=== PATIENT | female | born 1980 | race Caucasian/White ===

== ENCOUNTER 2022-02-15 18:07 | Inpatient (IN) | payer OTHER ==
[2022-02-16] MEDS ORDERED: LORazepam 1 MG TAB PO PRN (07:32)
[2022-02-16] MEDS ORDERED: MAGNESIUM HYDROXIDE 2,400 MG/10 ML CUP PO PRN (07:32)
[2022-02-16] MEDS ORDERED: ACETAMINOPHEN TAB 325 MG TAB PO PRN (07:32)
[2022-02-16] MEDS ORDERED: MAG HYDROX/AL HYDROX/SIMETH 30 ML CUP PO PRN (07:32)
[2022-02-16] MEDS ORDERED: HALOPERIDOL LACTATE 5 MG/ML 1 ML VIAL IM PRN (07:32)
[2022-02-16] MEDS ORDERED: LORazepam 2 MG/ML INJ IM PRN (07:36)
[2022-02-16] MEDS: NICOTINE 14MG/24HR PATCH TRANSDERM SCH (10:07)
[2022-02-16] MEDS ORDERED: traZODone HCL 50 MG TAB PO PRN (14:02)
--- NOTE | 2022-02-16 14:07 | P.HP ---
Psychiatric H&P - . H&P Date: 02/16/22 History & Physical: Allergies Allergy/AdvReac Type Severity Reaction Status Date / Time No Known Allergies Allergy Verified 02/16/22 07:32 Vital Signs Temp 97.5 F L 02/16/22 07:14 Pulse 77 02/16/22 07:14 Resp 18 02/16/22 07:14 BP 147/91 02/16/22 07:14 Pulse Ox 95 02/16/22 07:14 FiO2 Intake & Output 02/15/22 02/16/22 02/16/22 18:59 06:59 18:59 Weight 100.2 kg 02/16/22 14:02 IDENTIFYING DATA: Patient is a 41-year-old female, coming in as a transfer from [facility]. HPI: Patient presented to the hospital yesterday as a transfer from [facility]. According to APS report, patient overdosed on Tylenol in a suicide attempt at home. Apparently patient has a history of suicide attempts and suicidal ideations. She also has a remote history of substance abuse. Patient was admitted involuntarily and apparently is on a demand for hearing. Energy Economist attempted to see patient at the bedside today and patient was laying in the bed. She did not respond to her name initially however the second time she did. She asked to web content writer was and looked away when web content writer explained that he was a psychiatrist. She was very uncooperative hostile and irritable. She refused to answer any questions. She claims that she doesn't want to talk to web content writer today and told him to leave the room. Energy Economist asked the patient was in experiencing any suicidal or homicidal ideations. Patient states that "if you don't leave me alone I well". Uncooperative with the rest of the interview and did not answer any other questions related to her past history and states "read the chart and leave me alone". PAST PSYCHIATRIC HISTORY: She apparently has a history of suicide attempts and also substance abuse. PMH: Unable to gather ALLERGIES: as per EMR CHEMICAL DEPENDENCY HISTORY: Unable to gather FAMILY PSYCHIATRIC/SUBSTANCE USE HISTORY: Unable to gather SOCIAL HISTORY: Unable to gather MENTAL STATUS EXAM: General Appearance: Patient appears to have short hair, laying in bed and uncooperative stated age is alert, evasive and hostile. Patient appears to have poor hygiene and grooming. Behavior: Patient is seated without any agitated behavior. Uncooperative and hostile Speech: Patient's speech is fluent and nonpressured. Mood/Affect: Unable to assess Suicidality/Homicidality: Unable to assess Perceptions: Unable to assess Though content/process: [place], demanding. Hostile. Memory and concentration: Unable to assess Judgment and insight: poor STRENGTHS/WEAKNESSES: strength is that patient is resilient. Weakness is that patient has poor judgment and is impulsive INTELLECT: average IMPRESSIONS: Depressive disorder unspecified, rule out bipolar depression versus major depressive disorder PLAN: -Patient is admitted under involuntary status to [facility] for stabilization of psychiatric symptoms and safety. Patient has not signed adult voluntary form and medication consent and is placed in patient's chart. Patient apparently is on a deferral at this time and will look into when patient's demand for hearing his. -Medications : Will start patient on Zoloft 50 mg daily for mood/anxiety, trazodone 50 mg daily at bedtime when necessary for insomnia. -Ativan and Haldol PRN for agitation/aggression -Patient was informed of the risks, benefits and side effects of the medication -Internal Medicine consult to perform medical evaluation and physical. -NRT - nicotine patch -SW on board for discharge planning. Encourage patient to participate in groups to work on coping skills. Awaiting demand for hearing.
--- NOTE | 2022-02-16 15:32 | P.HPIM ---
History of Present Illness H&P Date: 02/16/22 Admitted to the hospital for suicidal patient is currently uncooperative irritated is not participating in any exam Review of systems unable to get Physical Does not appear to be in distress No labored breathing Unable to do more physical exam due to uncooperativeness Suicidal management as per psychiatry We'll check Tylenol level if possible Medications and Allergies Allergies Allergy/AdvReac Type Severity Reaction Status Date / Time No Known Allergies Allergy Verified 02/16/22 07:32 Physical Exam Vitals: Vital Signs Temp Pulse Resp BP Pulse Ox 02/16/22 07:14 97.5 F L 77 18 147/91 95 Intake and Output 02/16/22 02/16/22 02/16/22 06:59 14:59 22:59 Other: Weight 100.2 kg
[2022-02-16] MEDS: SERTRALINE 50 MG TAB PO SCH ×2 (15:36→15:39)
[2022-02-17] MEDS: SERTRALINE 50 MG TAB PO SCH (09:15)
[2022-02-17] MEDS: NICOTINE 14MG/24HR PATCH TRANSDERM SCH (09:15)
--- NOTE | 2022-02-17 12:22 | P.PN ---
Progress Note - Text Progress Note Date: 02/17/22 Interval History: Patient was seen today laying in the bed. According to nursing report patient has not been taking medications and has been mainly isolating and staying in her room. Patient was approached today by health technical writer in her room and patient appeared to be somewhat awake however lying in her bed. She continues to have an irritable tone and was hostile towards health technical writer and told them "just leave" and when health technical writer attempted to engage with patient once again patient responded "get out of my room" and states that she does not want to speak to him. She refused to answer any other questions. she is non compliant with meds. Mental Status Exam: General Appearance: Patient appears to have short hair, laying in bed and uncooperative stated age is alert, evasive and hostile. Patient appears to have poor hygiene and grooming. Behavior: Patient is seated without any agitated behavior. Uncooperative and hostile. Demanding Speech: Patient's speech is fluent and nonpressured. Mood/Affect: Unable to assess Suicidality/Homicidality: Unable to assess Perceptions: Unable to assess Though content/process: [place], demanding. Hostile. Memory and concentration: Unable to assess Judgment and insight: poor IMPRESSIONS: Depressive disorder unspecified, rule out bipolar depression versus major depressive disorder Plan: -Patient continues to meet criteria for inpatient psychiatric admission for symptom stabilization and safety. Patient has not signed adult voluntary form and medication consent and was placed in patient's chart. -Medications: Continue Zoloft 50 mg daily for mood/anxiety, trazodone 50 mg daily at bedtime when necessary for insomnia. She is not taking any medicat ions. -When necessary Ativan and Haldol for agitation/aggression. -NRT - nicotine patch -SW on board for discharge planning. Encouraged the patient to participate in milieu. Currently awaiting deferral with personal injury attorney and court date.
--- NOTE | 2022-02-18 10:40 | P.PN ---
Progress Note - Text Progress Note Date: 02/18/22 Interval History: Patient was seen today laying in the bed. Patient continues to isolate in her room. She continues to not engage in treatment and not take any medications. Patient was approached today by food writer to be interviewed however patient did not acknowledge food writer. She continues to lay on her bed with her sheets covering her and turned to the side. She did not respond to any questions by food writer today. she is non compliant with meds. Mental Status Exam: General Appearance: Patient appears to have short hair, laying in bed and uncooperative stated age is alert, uncooperative. Patient appears to have poor hygiene and grooming. Behavior: Patient is laying in bed without any agitated behavior. Uncooperative Speech: Patient's speech is fluent and nonpressured. Mood/Affect: Unable to assess Suicidality/Homicidality: Unable to assess Perceptions: Unable to assess Though content/process: unable to assess Memory and concentration: Unable to assess Judgment and insight: poor IMPRESSIONS: Depressive disorder unspecified, rule out bipolar depression versus major depressive disorder Plan: -Patient continues to meet criteria for inpatient psychiatric admission for symptom stabilization and safety. Patient has not signed adult voluntary form and medication consent and was placed in patient's chart. -Medications: Continue Zoloft 50 mg daily for mood/anxiety, trazodone 50 mg daily at bedtime when necessary for insomnia. She is not taking any medications. -When necessary Ativan and Haldol for agitation/aggression. -NRT - nicotine patch -SW on board for discharge planning. Encouraged the patient to participate in milieu. Currently awaiting deferral with energy attorney and court date.
[2022-02-18] MEDS: NICOTINE 14MG/24HR PATCH TRANSDERM SCH (10:51)
[2022-02-18] MEDS: SERTRALINE 50 MG TAB PO SCH (10:51)
[2022-02-18] MEDS: haloperidoL 5 MG TAB PO PRN (21:06)
[2022-02-19] MEDS: NICOTINE 14MG/24HR PATCH TRANSDERM SCH (09:57)
[2022-02-19] MEDS: SERTRALINE 50 MG TAB PO SCH (09:57)
--- NOTE | 2022-02-19 11:08 | P.PN ---
Subjective Progress Note Date: 02/19/22 Principal diagnosis: IMPRESSIONS: Depressive disorder unspecified, rule out bipolar depression versus major depressive disorder Rule out personality disorder unspecified Interval History: Patient was seen today laying in the bed. Patient continues to isolate in her room. She continues to not engage in treatment and not take any medications. Patient was approached today by sports book writer . Patient was initially reluctant to answer any questions Patient continues to complain that she was forced to come here She admits that she took an overdose with about 60 Tylenol tablets but that the med this treatment has ever done her any good Patient then refused to answer any questions but continues to cuss out against the staff and for being confined here . Mental Status Exam: General Appearance: Patient appears to have short hair, laying in bed and uncooperative stated age is alert, uncooperative. Patient appears to have poor hygiene and grooming. Behavior: Patient is laying in bed without any agitated behavior. Uncooperative Speech: Patient's speech is fluent and nonpressured. Mood/Affect: Unable to assess Suicidality/Homicidality: Unable to assess Perceptions: Unable to assess Though content/process: unable to assess Memory and concentration: Unable to assess Judgment and insight: poor IMPRESSIONS: Depressive disorder unspecified, rule out bipolar depression versus major depressive disorder Plan: -Patient continues to meet criteria for inpatient psychiatric admission for symptom stabilization and safety. Patient has not signed adult voluntary form and medication consent and was placed in patient's chart. -Medications: Continue Zoloft 50 mg daily for mood/anxiety, trazodone 50 mg daily at bedtime when necessary for insomnia. She is not taking any medications. -When necessary Ativan and Haldol for agitation/aggression. -NRT - nicotine patch - on board for discharge planning. Encouraged the patient to participate in milieu. Currently awaiting deferral with deputy commonwealth's attorney and court date. Saroj Umana M.D. 02/19/2022 Objective - Vital Signs Vital signs: Vital Signs Temp 97.4 F L 02/19/22 07:02 Pulse 72 02/19/22 07:02 Resp 18 02/16/22 07:14 BP 127/76 02/19/22 07:02 Pulse Ox 97 02/19/22 07:02 FiO2
[2022-02-20] MEDS: SERTRALINE 50 MG TAB PO SCH (08:58)
[2022-02-20] MEDS: NICOTINE 14MG/24HR PATCH TRANSDERM SCH (08:58)
--- NOTE | 2022-02-20 10:38 | P.PN ---
Subjective Progress Note Date: 02/20/22 Principal diagnosis: IMPRESSIONS: Depressive disorder unspecified, rule out bipolar depression versus major depressive disorder Rule out personality disorder unspecified Interval History: Patient was seen today laying in the bed. Patient continues to isolate in her room. She continues to not engage in treatment and not take any medications. When Patient was approached today by jingle writer she immediately put the bed sheets on top of her head and refused to answer any questions Patient had previously Patient continues to complain that she was forced to come here She admits that she took an overdose with about 60 Tylenol tablets but that the med this treatment has ever done her any good Patient then refused to answer any questions but continues to cuss out against the staff and for being confined here . Mental Status Exam: General Appearance: Patient appears to have short hair, laying in bed and uncooperative stated age is alert, uncooperative. Patient appears to have poor hygiene and grooming. Behavior: Patient is laying in bed without any agitated behavior. Uncooperative Speech: Patient refused to answer any questions by pulling up that she over the top of her head Mood/Affect: Unable to assess Suicidality/Homicidality: Unable to assess Perceptions: Unable to assess Though content/process: unable to assess Memory and concentration: Unable to assess Judgment and insight: poor IMPRESSIONS: Depressive disorder unspecified, rule out bipolar depression versus major depressive disorder Plan: -Patient continues to meet criteria for inpatient psychiatric admission for symptom stabilization and safety. Patient has not signed adult voluntary form and medication consent and was placed in patient's chart. -Medications: Continue Zoloft 50 mg daily for mood/anxiety, trazodone 50 mg daily at bedtime when necessary for insomnia. She is not taking any me dications. -When necessary Ativan and Haldol for agitation/aggression. -NRT - nicotine patch - on board for discharge planning. Encouraged the patient to participate in milieu. Currently awaiting deferral with senior trial attorney and court date. Saroj Umana M.D. 02/20/2022 Objective - Vital Signs Vital signs: Vital Signs Temp 97.4 F L 02/19/22 07:02 Pulse 72 02/19/22 07:02 Resp 18 02/16/22 07:14 BP 127/76 02/19/22 07:02 Pulse Ox 97 02/19/22 07:02 FiO2 Intake & Output 02/19/22 02/20/22 02/20/22 18:59 06:59 18:59 Weight 99.2 kg
[2022-02-21] MEDS: SERTRALINE 50 MG TAB PO SCH (09:35)
[2022-02-21] MEDS: NICOTINE 14MG/24HR PATCH TRANSDERM SCH (09:35)
--- NOTE | 2022-02-21 11:56 | P.PN ---
Progress Note - Text Progress Note Date: 02/21/22 Interval History: Patient was seen today laying in the bed. Patient continues to be found laying down in her bed and turned away from contract technical writer. She did not respond to any questions however did repeatedly tell contract technical writer to "go away" whenever he asked a question. She continues to not be engaging in treatment and taking medications. Mental Status Exam: General Appearance: Patient appears to have short hair, laying in bed and uncooperative stated age is alert, uncooperative. Patient appears to have poor hygiene and grooming. Behavior: Patient is laying in bed without any agitated behavior. Uncooperative Speech: Patient's speech is fluent and nonpressured. Mood/Affect: Unable to assess Suicidality/Homicidality: Unable to assess Perceptions: Unable to assess Though content/process: unable to assess Memory and concentration: Unable to assess Judgment and insight: poor IMPRESSIONS: Depressive disorder unspecified, rule out bipolar depression versus major depressive disorder Plan: -Patient continues to meet criteria for inpatient psychiatric admission for symptom stabilization and safety. Patient has not signed adult voluntary form and medication consent and was placed in patient's chart. -Medications: Continue Zoloft 50 mg daily for mood/anxiety, trazodone 50 mg daily at bedtime when necessary for insomnia. She is not taking any medications. -When necessary Ativan and Haldol for agitation/aggression. -NRT - nicotine patch -SW on board for discharge planning. Encouraged the patient to participate in milieu. Currently awaiting court date.
[2022-02-22] MEDS: SERTRALINE 50 MG TAB PO SCH ×2 (07:37→20:59)
[2022-02-22] MEDS: NICOTINE 14MG/24HR PATCH TRANSDERM SCH (07:37)
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
[2022-02-22] MEDS: haloperidoL 5 MG TAB PO PRN (14:35)
[2022-02-22] MEDS: traZODone HCL 50 MG TAB PO SCH (20:58)
[2022-02-22] MEDS: PRAZOSIN 1 MG CAP PO SCH (20:59)
[2022-02-23] MEDS: NICOTINE 14MG/24HR PATCH TRANSDERM SCH (08:54)
--- NOTE | 2022-02-23 10:33 | P.PN ---
Progress Note - Text Progress Note Date: 02/23/22 Interval History: Patient was seen today laying in her bed and the patient was agreeable to speak to her in the office today. Patient claims she is doing a bit better today in terms of her mood and anxiety. She states that she is able to sleep for the better last night. She continues to have poverty of content and is very concrete. She claims she was able to sleep without nightmares that she can remember last night. She is not reporting any side effects at this time. She states she has not corner many groups and has a fair appetite. Continues to be fairly withdrawn and isolating in her room. At this time patient denies any suicidal or homical ideations, intent or plan. Patient denies any auditory, visual hallucinations and denies any paranoia or delusions. Patient claims that she is willing to take the medications at this time. Mental Status Exam: General Appearance: Patient appears to have short hair, be stated age is alert, directable, and more cooperative. Laying in her bed Behavior: [Patient is calmly sitting on the chair without any agitated behavior.] Speech: Patient's speech is fluent and nonpressured Mood/Affect: Mood is improving mildly, affect is congruent and constricted. Suicidality/Homicidality: Patient denies having any suicidal or homicidal ideation intent or plan. Perceptions: Patient denies any visual hallucinations [and denies any auditory hallucinations] Though content/process: [There is no evidence of any delusional thought content and thought process is linear and goal-directed.] Memory and concentration: AOX3, grossly intact for the purposes of this session Judgment and insight: Improving mildly Assessment major depressive disorder without psychotic features PTSD Nicotine dependence Plan: -Patient continues to meet criteria for inpatient psychiatric admission for symptom stabilization and safety. Patient has not signed adult voluntary form and medication consent and was placed in patient's chart. -Medications: Zoloft 50 mg daily at bedtime for mood/anxiety, trazodone 50 mg daily at bedtime for insomnia, prazosin 1 mg daily at bedtime for nightmares -When necessary Ativan and Haldol for agitation/aggression. -NRT - nicotine patch -SW on board for discharge planning. Encouraged the patient to participate in milieu. patient signed a waive and stip and agreeable to treatment. likely discharge in 1-2 days.
[2022-02-23] MEDS: PRAZOSIN 1 MG CAP PO SCH (20:52)
[2022-02-23] MEDS: traZODone HCL 50 MG TAB PO SCH (20:52)
[2022-02-23] MEDS: SERTRALINE 50 MG TAB PO SCH (20:52)
--- NOTE | 2022-02-24 11:53 | P.PN ---
Progress Note - Text Progress Note Date: 02/24/22 Interval History: Patient was seen today laying in her bed and the patient was agreeable to speak to show card writer in the room. Patient claims she is feeling anxious and more depressed today. She states that she did not sleep well last night. She claims that she also had nightmares was having flashbacks yesterday. She was agreeable to have her medications increased for tonight. She did seem mildly irritable today and spoke negatively about a nurse that was trying to give her Ativan yesterday. She states that she is not clinically groups and not participating much mainly isolating in her room still. She claims that she did not fill comfortable going home today. Claims have a fair appetite. Poor sleep last night. At this time patient denies any suicidal or homical ideations, intent or plan. Patient denies any auditory, visual hallucinations and denies any paranoia or delusions. Rodrigo tate claims that she is willing to take the medications at this time. Mental Status Exam: General Appearance: Patient appears to have short hair, be stated age is alert, directable, and more cooperative. Laying in her bed Behavior: Patient is laying on her bed, attempts to cooperate. Speech: Patient's speech is fluent and nonpressured Mood/Affect: Mood is depressed and anxiety, affect is congruent and constricted Suicidality/Homicidality: Patient denies having any suicidal or homicidal ideation intent or plan. Perceptions: Patient denies any visual hallucinations [and denies any auditory hallucinations] Though content/process: [There is no evidence of any delusional thought content and thought process is linear and goal-directed.] Memory and concentration: AOX3, grossly intact for the purposes of this session Judgment and insight: Improving mildly Assessment major depressive disorder without psychotic features PTSD Nicotine dependence Plan: -Patient continues to meet criteria for inpatient psychiatric admission for symptom stabilization and safety. Patient has not signed adult voluntary form and medication consent and was placed in patient's chart. -Medications: increase Zoloft 100 mg daily at bedtime for mood/anxiety, increase trazodone 100 mg daily at bedtime for insomnia, continue with prazosin 1 mg daily at bedtime for nightmares -When necessary Ativan and Haldol for agitation/aggression. -NRT - nicotine patch -SW on board for discharge planning. Encouraged the patient to participate in milieu. patient signed a waive and stip and agreeable to treatment. likely dis charge in 1-2 days.
[2022-02-24] MEDS: traZODone HCL 100 MG TAB PO SCH (20:36)
[2022-02-24] MEDS ORDERED: PRAZOSIN 1 MG CAP PO SCH ×2 (21:00)
[2022-02-24] MEDS ORDERED: SERTRALINE 100 MG TAB PO SCH (21:00)
--- NOTE | 2022-02-25 09:48 | P.PN ---
Progress Note - Text Progress Note Date: 02/25/22 Interval History: Patient was seen today laying in her bed and the patient was agreeable to speak to service writer in the office. She continues to have a depressed and constricted affect. she states that she is still dealing with her depression, wants to go home but feels that she would be unsafe going home at this point. She claims that she feels she may harm herself and states that she is still having suicidal thoughts. She claims that she was minimizing it before however has been more truthful about it. She claims that she still like going to groups and wants to remain isolative. She appears to be less irritable today and is reporting mild improvement in her anxiety. She states that she is still dealing with some nightmares night. She claims she got about 5-6 hours of sleep last night. At this time patient denies any suicidal or homical ideations, intent or plan. Patient denies any auditory, visual hallucinations and denies any paranoia or delusions. Patient claims that she is willing to take the medications at this time. Mental Status Exam: General Appearance: Patient appears to have short hair, be stated age is alert, directable, and more cooperative. Laying in her bed Behavior: Patient is laying on her bed, attempts to cooperate. Speech: Patient's speech is fluent and nonpressured Mood/Affect: Mood is depressed and anxiety, affect is congruent and constricted Suicidality/Homicidality: Patient denies having any homicidal ideation intent or plan. she is endorsing suicidal thoughts today, no plan. Perceptions: Patient denies any visual hallucinations and denies any auditory hallucinations Though content/process: There is no evidence of any delusional thought content and thought process is linear and goal-directed. hopelessness. Memory and concentration: AOX3, grossly intact for the purposes of this session Judgment and insight: Improving mildly Assessment major depressive disorder without psychotic features PTSD Nicotine dependence Plan: -Patient continues to meet criteria for inpatient psychiatric admission for symptom stabilization and safety. Patient has not signed adult voluntary form and medication consent and was placed in patient's chart. -Medications: increase Zoloft 150 mg daily at bedtime for mood/anxiety for tomorrow, trazodone 100 mg daily at bedtime for insomnia, increase prazosin 2 mg daily at bedtime for nightmares -When necessary Ativan and Haldol for agitation/aggression. -NRT - nicotine patch -SW on board for discharge planning. Encouraged the patient to participate in milieu. patient signed a waive and stip and agreeable to treatment. likely discharge early next week back home if patient is improving over the weekend.
[2022-02-25] MEDS ORDERED: SERTRALINE 100 MG TAB PO ONE (21:00)
[2022-02-25] MEDS: traZODone HCL 100 MG TAB PO SCH (21:19)
[2022-02-25] MEDS: PRAZOSIN 1 MG CAP PO SCH (21:19)
--- NOTE | 2022-02-26 14:30 | P.PN ---
Subjective Progress Note Date: 02/26/22 Principal diagnosis: Major depression recurrent nonpsychotic PTSD Patient was seen today laying in her bed and the patient was agreeable to speak to sign writer letterer or painter in the office. She continues to have a depressed , she states that she is still dealing with her depression, wants to go home but feels that she would be unsafe going home at this point. She claims that she feels she may harm herself and states that she is still having suicidal thoughts. She claims that she was minimizing it before however has been more truthful about it. She claims that she still does not like going to groups and wants to remain isolative. . She states that she is still dealing with some nightmares at night but she thinks that they are more tolerable does not want to increase the medicine she denies any dizziness from the Minipress. She claims she got about 5-6 hours of sleep last night, she is taking her Zoloft at night which U she will keep people up. I told her she has trouble sleeping tonight we'll move that to the morning she didn't want to change anything right now. At this time patient denies any suicidal or homical ideations, intent or plan. Patient denies any auditory, visual hallucinations and denies any paranoia or delusions. Mental Status Exam: General Appearance: Patient has short hair, be her stated age is alert, directable, and he has cooperative. She was Laying in her bed at 2:30 in the more afternoon Behavior: Patient is laying on her bed, but jumped tried up and came to the conference room Speech: Patient's speech is fluent and nonpressured Mood/Affect: Mood is depressed and anxiety, affect congruent and she is able to smile pleasantly and laugh at jokes Suicidality/Homicidality: Patient denies having any homicidal ideation intent or plan. she is endorsing suicidal thoughts today, but feels that she is getting some home, no plan. Perceptions: Patient denies any visual hallucinations and denies any auditory hallucinations Though content/process: There is no evidence of any delusional thought content and thought process is linear and goal-directed. hopelessness. Memory and concentration: AOX3, grossly intact for the purposes of this session Judgment and insight: Improving mildly Assessment major depressive disorder without psychotic features PTSD Nicotine dependence Plan: No change in medicine at this time -Patient continues to meet criteria for inpatient psychiatric admission for symptom stabilization and safety. Patient has not signed adult voluntary form and medication consent and was placed in patient's chart. -Medications: increase Zoloft 150 mg daily at bedtime for mood/anxiety for tomorrow, trazodone 100 mg daily at bedtime for insomnia, increase prazosin 2 mg daily at bedtime for nightmares -When necessary Ativan and Haldol for agitation/aggression. -NRT - nicotine patch -SW on board for discharge planning. Encouraged the patient to participate in milieu. patient signed a waive and stip and agreeable to treatment. likely discharge early next week back home if patient is improving over the weekend. Objective - Vital Signs Vital signs: Vital Signs Temp 97.3 F L 02/25/22 06:37 Pulse 58 L 02/25/22 06:37 Resp 16 02/25/22 06:37 BP 107/56 02/25/22 06:37 Pulse Ox 97 02/22/22 06:55 FiO2
[2022-02-26] MEDS: PRAZOSIN 1 MG CAP PO SCH (21:40)
[2022-02-26] MEDS: SERTRALINE 50 MG TAB PO SCH (21:41)
[2022-02-26] MEDS: traZODone HCL 100 MG TAB PO SCH (21:41)
--- NOTE | 2022-02-27 12:56 | P.PN ---
Subjective Progress Note Date: 02/27/22 Principal diagnosis: Major depression recurrent nonpsychotic PTSD Patient was seen today laying in her bed and the patient was agreeable to speak to television script writer in the office. She continues to feel depressed , she states that she is still dealing with her depression, wants to go home but feels that she would be unsafe going home at this point. She claims that she feels she may harm herself and states that she is still having suicidal thoughts. She claims that she was minimizing it before however has been more truthful about it. She is feeling a little more hopeful each day She said she had the best sleep she has had in months last night and did not have nightmares. she is taking her Zoloft at night and it does not seem to be causing trouble with sleep. At this time patient denies any suicidal or homical ideations, intent or plan. Patient denies any auditory, visual hallucinations and denies any paranoia or delusions. Mental Status Exam: She is pleasant good eye contact unable to voice some hope at this point General Appearance: Patient has short hair, be her stated age is alert, directable, and he has cooperative. She was Laying in her bed at 2:30 in the more afternoon Behavior: Patient is laying on her bed, but jumped tried up and came to the conference room Speech: Patient's speech is fluent and nonpressured Mood/Affect: Mood is depressed and anxiety, affect congruent and she is able to smile pleasantly and laugh at jokes Suicidality/Homicidality: Patient denies having any homicidal ideation intent or plan. she is endorsing suicidal thoughts today, but feels that she is getting some home, no plan. Perceptions: Patient denies any visual hallucinations and denies any auditory hallucinations Though content/process: There is no evidence of any delusional thought content and thought process is linear and goal-directed. hopelessness. Memory and concentration: AOX3, grossly intact for the purposes of this session Judgment and insight: Improving mildly Assessment major depressive disorder without psychotic features PTSD Nicotine dependence Plan: No change in medicine at this time -Patient continues to meet criteria for inpatient psychiatric admission for symptom stabilization and safety. Patient has not signed adult voluntary form and medication consent and was placed in patient's chart. -Medications: Continue Zoloft 150 mg daily at bedtime for mood/anxiety for tomorrow, trazodone 100 mg daily at bedtime for insomnia, increase prazosin 2 mg daily at bedtime for nightmares -When necessary Ativan and Haldol for agitation/aggression. -NRT - nicotine patch -SW on board for discharge planning. Encouraged the patient to participate in milieu. patient signed a waive and stip and agreeable to treatment. likely discharge early next week back home if patient is improving over the weekend. Objective - Vital Signs Vital signs: Vital Signs Temp 97.1 F L 02/27/22 06:52 Pulse 56 L 02/27/22 06:52 Resp 14 02/27/22 06:52 BP 87/48 02/27/22 06:52 Pulse Ox 97 02/22/22 06:55 FiO2 Intake & Output 02/26/22 02/27/22 02/27/22 18:59 06:59 18:59 Weight 99 kg
[2022-02-27] MEDS: traZODone HCL 100 MG TAB PO SCH (21:55)
[2022-02-27] MEDS: PRAZOSIN 1 MG CAP PO SCH (21:55)
[2022-02-27] MEDS: SERTRALINE 50 MG TAB PO SCH (21:55)
[2022-02-28] MEDS: IBUPROFEN 400 MG TAB PO PRN (08:55)
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
[2022-02-28 14:06] VITALS: BMI 34.2
[2022-02-28] MEDS: haloperidoL 5 MG TAB PO PRN (16:58)
[2022-02-28] MEDS: traZODone HCL 100 MG TAB PO SCH (20:51)
[2022-02-28] MEDS: SERTRALINE 50 MG TAB PO SCH (20:51)
[2022-02-28] MEDS: PRAZOSIN 1 MG CAP PO SCH (20:51)
[2022-03-01] MEDS ORDERED: LORazepam 1 MG TAB PO PRN (07:57)
[2022-03-01] MEDS: ARIPiprazole 2 MG TAB PO SCH (10:45)
--- NOTE | 2022-03-01 11:44 | P.PN ---
Progress Note - Text Progress Note Date: 03/01/22 Clinical Problems: Major depressive disorder without psychotic features, PTSD, tobacco use Interim history: I reviewed the medical record, interviewed the patient and discussed the treatment and treatment plan with the treatment team. She became acutely distress yesterday afternoon and received 5 mg of Haldol. She described becoming increasingly restless and preoccupied with suicide to the point where she requested a when necessary medication. She gave this incident example about what occurred prior to admission and what occurs intermittently over the last 10 years. She described preoccupation with suicide but without a specific intent or plan. We discussed treatment. She feels that the antidepressant Zoloft has helped with reducing anxiety and improving her mood. However, she continues to have thoughts of suicide and agreed to a trial of Abilify. Mental status exam: She presented as a casually groomed 41-year-old female with short cropped hair. She made eye contact and attended to the interview. She had a sad facial expression. She was alert and oriented to person, place and time. Showed psychomotor retardation but no abnormal involuntary movements. Her speech was spontaneous with decreased rate and rhythm. She had no articulation difficulties. Affect was depressed and not reactive. She denied suicidal ideation and wishes. She denied homicidal ideation. She expressed feelings of hopelessness and helplessness. She did not express ideas reference, paranoid ideation or delusions. His thinking was concrete but her associations were coherent, logical and goal directed. She denied hallucinations and did not appear to be responding to internal stimuli. Assessment: She continues to have signs and symptoms depression with intermittent suicidal preoccupation. Overall clinical status as improve from admission. Plan: Continue inpatient treatment. Safety precautions. Begin Abilify 1 mg daily and titrated according to clinical response and tolerance. Continue current psychotropic medications-Zoloft 150 mg at bedtime, Minipress 2 mg at bedtime and Desyrel 100 mg at bedtime. Haldol and/or Ativan when necessary for agitation, aggression or acute psychosis. Encourage participation in therapeutic groups and activities. Plan for discharge on 03/02/2022.
[2022-03-01] MEDS: traZODone HCL 100 MG TAB PO SCH (21:08)
[2022-03-01] MEDS: PRAZOSIN 1 MG CAP PO SCH (21:08)
[2022-03-01] MEDS: SERTRALINE 50 MG TAB PO SCH (21:08)
[2022-03-01] MEDS: IBUPROFEN 400 MG TAB PO PRN (21:11)
[2022-03-02 06:40] VITALS: BP 126/60; PULSE 61; RESP 18; TEMP 97.2
[2022-03-02] MEDS: ARIPiprazole 2 MG TAB PO SCH (08:09)
--- NOTE | 2022-03-02 13:37 | P.DS ---
Providers Date of admission: 02/16/22 06:45 Attending physician: Watson Mir MD Consults: 02/16/22 07:32 Consult Physician Routine Consulting Provider: Violet Physician Consult Reason/Comments: h and p Do you want consulting provider notified?: Yes, Notify in am Primary care physician: Stated None - Discharge Diagnosis(es) (1) Suicide attempt by acetaminophen overdose Current Visit: Yes Status: Acute Priority: Medium (2) Suicide ideation Current Visit: Yes Status: Chronic Priority: Medium (3) Major depressive disorder, recurrent, severe w/o psychotic behavior Current Visit: Yes Status: Chronic Priority: Medium (4) Post traumatic stress disorder (PTSD) Current Visit: Yes Status: Chronic Priority: Medium (5) Tobacco use Current Visit: Yes Status: Chronic Priority: Low Hospital Course: HISTORY: She is 41-year-old single female transferred from [facility] Emergency room where she presented following a suicide attempt by overdose of acetaminophen. She was stabilized in the emergency room and transferred for inpatient psychiatric care. She has a history of suicide attempts and suicidal ideation. He complained of worsening symptoms of depression with recurrent suicidal ideation. She was involved with outpatient mental health services for the treatment of depression and posttraumatic stress disorder. She has a distant history of alcohol use disorder. HOSPITAL COURSE: We admitted her involuntarily to the psychiatric unit under the care of Dr. Jerome. She refused to deferred the probate hearing but eventually waved and stipulated to the court order. The intelligence consultant beater room supervisor attempted to completed initial physical exam and medical history. However, the patient would not cooperate with the assessment. She was uncooperative during much of the hospitalization. She refused to get out of bed or participated in therapeutic groups and activities. Her mood improved with with a combination of sertraline, Desyrel and Abilify. She began to attend therapeutic groups and activities. However, she seldom interacted with staff or peers. She requested a referral for EMDR therapy. MENTAL STATUS ON DISCHARGE: At the time of discharge she presented as a casually groomed 41-year-old female who was pleasant on approach. She made eye contact and appeared to attend to interview. She had a sad facial expression. She showed psychomotor retardation but no abnormal involuntary movements. Her speech was spontaneous with decreased rate and rhythm. Her affect was depressed but reactive. She denied suicidal ideation or wishes. She did not express feelings of hopelessness, helplessness or worthlessness. She did not express ideas reference, paranoid ideation or delusions. Her thinking was abstract and associations were coherent, logical and goal directed. She denied hallucinations and did not appear to responding to internal stimuli. DISPOSITION: She was discharged to her former address. The social sciences department chair schedule a follow-up appointment with her outpatient therapist Melissa Hernandez and provided her with resources for he and the ER therapy. At the time of discharge social sciences department chair was working on modifying the court order from [facility] to the patient's outpatient mental health clinic, [facility]. Her discharge medications were adjusted below. Patient Condition at Discharge: Stable Plan - Discharge Summary New Discharge Prescriptions: New Prazosin [Minipress] 2 mg PO HS 30 Days cap Sertraline [Zoloft] 150 mg PO HS 30 Days tab ARIPiprazole [Abilify] 2 mg PO DAILY 30 Days tab traZODone HCL [Desyrel] 100 mg PO HS 30 Days tab Discharge Medication List ARIPiprazole [Abilify] 2 mg PO DAILY 30 Days tab 03/02/22 [Rx] Prazosin [Minipress] 2 mg PO HS 30 Days cap 03/02/22 [Rx] Sertraline [Zoloft] 150 mg PO HS 30 Days tab 03/02/22 [Rx] traZODone HCL [Desyrel] 100 mg PO HS 30 Days tab 03/02/22 [Rx] Follow up Appointment(s)/Referral(s): [facility] [Other] - 03/07/22 9:00 am (office closed week of 02/27-03/05 Follow up will be 03/07 @ 09:00) [facility] [NON-STAFF] - 1 Week Patient Instructions/Handouts: Depression (DC), Post Traumatic Stress Disorder (DC) Activity/Diet/Wound Care/Special Instructions: Activity and diet as tolerated. Avoid the use of street drugs and alcohol. Take all medications as prescribed. When you are in need of refills on your medications please contact your medical provider and/or outpatient psychiatrist to have this done. Please go to scheduled outpatient appointment for aftercare treatment. If symptoms return or become worse, call the crisis line at and/or go to the nearest emergency room for evaluation Discharge Disposition: HOME SELF-CARE
== END 2022-03-02 14:10 | disposition home or self-care (01) | DRG 885 ==
LOC: 3MHU 02-16 06:45
PROVIDERS: ADMIT Psychiatry & Neurology Psychiatry; ATTEND Psychiatry & Neurology Psychiatry
DX: F33.2 Major depressive disorder, recurrent severe without psychotic features (principal); Z91.128 Patient's intentional underdosing of medication regimen for other reason; F10.11 Alcohol abuse, in remission; T39.1X2A Poisoning by 4-Aminophenol derivatives, intentional self-harm, initial encounter; F43.10 Post-traumatic stress disorder, unspecified; T50.906A Underdosing of unspecified drugs, medicaments and biological substances, initial encounter; G47.00 Insomnia, unspecified; F17.200 Nicotine dependence, unspecified, uncomplicated; Z91.51 Personal history of suicidal behavior; X58.XXXA Exposure to other specified factors, initial encounter